=== PATIENT | male | born 1980 | race African-American/Black ===

== ENCOUNTER 2017-05-31 21:23 | Emergency (ER) | payer MEDICAID ==
[~2017-05-31] VITALS: Ht 185.4 cm; Wt 95.0 kg
[2017-05-31 21:31] VITALS: BP 113/64
[2017-05-31] MEDS ORDERED: PREDNISONE 20MG TABLET PO STA (22:25)
== END 2017-05-31 22:39 | disposition home or self-care (01) ==
LOC: ER 22:29
DX: L30.9 Dermatitis, unspecified (principal); F17.210 Nicotine dependence, cigarettes, uncomplicated; F12.10 Cannabis abuse, uncomplicated; Z87.828 Personal history of other (healed) physical injury and trauma
CPT/HCPCS: 99283; J7512

== ENCOUNTER 2017-06-08 11:52 | Emergency (ER) | payer MEDICAID ==
[~2017-06-08] VITALS: Ht 185.4 cm; Wt 96.0 kg
[2017-06-08 12:16] VITALS: BP 121/57
[2017-06-08] MEDS ORDERED: PREDNISONE 20MG TABLET PO ONE (16:45)
== END 2017-06-08 16:54 | disposition home or self-care (01) ==
LOC: ER 12:16
DX: L30.9 Dermatitis, unspecified (principal)
CPT/HCPCS: 99283; J7512